=== PATIENT | female | born 1950 | race Hispanic/Latino ===

== ENCOUNTER → 2018-01-31 | Outpatient (CLI) | payer MEDICARE ==
[2018-01-31] MEDS: REGADENOSON 0.4 MG/5 ML PF SYG IVP SCH (10:53)
== END | disposition home or self-care (01) ==
LOC: SHCH 08:09
PROVIDERS: ATTEND Internal Medicine Cardiovascular Disease
DX: R94.31 Abnormal electrocardiogram [ECG] [EKG] (principal); I12.9 Hypertensive chronic kidney disease with stage 1 through stage 4 chronic kidney disease, or unspecified chronic kidney disease; E11.22 Type 2 diabetes mellitus with diabetic chronic kidney disease; N18.9 Chronic kidney disease, unspecified; E78.5 Hyperlipidemia, unspecified
CPT/HCPCS: 78452; 93017; 96374; A9500 ×2; J2785

== ENCOUNTER 2018-02-11 10:30 | Observation (INO) | payer MEDICARE ==
[2018-02-08 10:10] VITALS: BP 99/56
[2018-02-08 10:36] LABS: BASOPHILS % (AUTO) 0.5 % (0.0-5.0); EOSINOPHILS % (AUTO) 3.6 % (0.0-8.0); HEMATOCRIT 42.2 % (36-48); MEAN CORPUSCULAR HEMOGLOBIN 29.3 pg (27.0-33.0); MEAN CORPUSCULAR HGB CONC 33.2 g/dL (32.0-36.0); MEAN CORPUSCULAR VOLUME 88.4 fL (79-99); MONOCYTES % (AUTO) 7.3 % (3.0-13.0); NEUTROPHILS % (AUTO) 62.6 % (40.0-77.0); PLATELET COUNT (AUTO) 165 K/uL (130-400); RED BLOOD CELL COUNT(AUTO) 4.77 MIL/uL (4.00-5.50); RED CELL DISTRIBUTION WIDTH 14.2 % (11.0-15.5)
[2018-02-08 10:44] LABS: APPEARANCE,URINE Clear (CLEAR); BILIRUBIN,URINE Negative (NEGATIVE); COLOR,URINE Dark Yellow (YELLOW); GLUCOSE, URINE (UA) Negative (NEGATIVE); KETONES,URINE Negative (NEGATIVE); LEUKOCYTE ESTERASE ,URINE Small (NEGATIVE); NITRATE,URINE Negative (NEGATIVE); OCCULT BLOOD,URINE Negative (NEGATIVE); PH,URINE 6.5 (5.0-8.0); PROTEIN,URINE Negative (NEGATIVE)
[2018-02-08 10:45] LABS: POTASSIUM 3.7 mmol/L (3.5-5.1)
[2018-02-08 10:50] LABS: INR 0.96 (0.85-1.15); PARTIAL THROMBOPLASTIN TIME 28.7 SEC (26.3-35.5); PROTHROMBIN TIME 10.1 SEC (9.6-11.6)
[2018-02-08 10:55] LABS: BACTERIA,URINE Rare /HPF (None Seen); RBC,URINE None Seen /HPF (0-1); SQUAMOUS EPITHELIAL CELL,UR Rare /HPF (0-2); WBC,URINE 0-1 /HPF (0-1)
[2018-02-11] VITALS (9 sets, daily range): BP systolic 103–136; BP diastolic 52–82
[~2018-02-11] VITALS: Ht 154.9 cm; Wt 75.0 kg
[2018-02-11] MEDS ORDERED: SODIUM CHLORIDE 0.9% 1000ML 1,000 ML IV ONE (12:39)
[2018-02-11] MEDS ORDERED: CALC-190 PO (13:28)
[2018-02-11] MEDS ORDERED: MYCO500T PO (13:28)
[2018-02-11] MEDS ORDERED: NPH,100V11 SQ (13:28)
[2018-02-11] MEDS ORDERED: MULT-1296 PO (13:28)
[2018-02-11] MEDS ORDERED: PRAV20TA4 PO (13:28)
[2018-02-11] MEDS ORDERED: LEVO5TAB13 PO (13:28)
[2018-02-11] MEDS ORDERED: TRAM50TA4 PO (13:28)
[2018-02-11] MEDS ORDERED: AMLO10TA6 PO (13:28)
[2018-02-11] MEDS ORDERED: LATA7.5D OP (13:28)
[2018-02-11] MEDS ORDERED: OMEP40CA37 PO (13:28)
[2018-02-11] MEDS ORDERED: TACR5CAP PO (13:28)
[2018-02-11] MEDS ORDERED: CLON0.1T PO (13:28)
[2018-02-11] MEDS ORDERED: HEPARIN SODIUM 1000UNIT/ML 10ML VIAL ONE (19:40)
[2018-02-11] MEDS ORDERED: IOHEXOL 350 MG/ML 100ML INFUS..BTL IV ONE (19:40)
[2018-02-11] MEDS ORDERED: IOHEXOL-350 50ML VIAL IV ONE (19:40)
[2018-02-11] MEDS ORDERED: NITROGLYCERIN 5 MG/ML 10 ML VIAL IV ONE (19:40)
[2018-02-11] MEDS ORDERED: LIDOCAINE HCL 2% 20ML ONE (19:41)
[2018-02-11] MEDS ORDERED: MEPERIDINE-PF 25 MG/ML SYG ONE (19:56)
[2018-02-11] MEDS ORDERED: SODIUM BICARB 50MEQ 50ML VIAL ONE (19:57)
[2018-02-11] MEDS ORDERED: MIDAZOLAM HCL 1 MG/ML 2ML VIAL ONE (19:57)
[2018-02-11] MEDS ORDERED: GLUCAGON 1MG KIT 1 MG ML IM PRN (20:45)
[2018-02-11] MEDS ORDERED: TRAMADOL HCL 50 MG TABLET PO PRN (20:45)
[2018-02-11] MEDS ORDERED: DEXTROSE 50%-WATER 50 ML DISP.SYRIN IV PRN (20:45)
[2018-02-11] MEDS ORDERED: AMLODIPINE BESYLATE 5 MG TAB PO SCH (21:00)
[2018-02-11] MEDS ORDERED: CLONIDINE HCL 0.1 MG TABLET PO SCH (21:00)
[2018-02-11] MEDS: TACROLIMUS 1 MG CAPSULE PO SCH (21:00)
[2018-02-11] MEDS ORDERED: ATORVASTATIN CALCIUM 10 MG TABLET PO SCH (21:00)
[2018-02-11] MEDS: LATANOPROST 2.5 ML DROPS OP SCH (21:53)
[2018-02-11] MEDS: MYCOPHENOLATE MOFETIL 250 MG CAPSULE PO SCH (21:53)
[2018-02-11] MEDS: CALCIUM 600 + VITAMIN D 400 TABLET PO SCH (22:01)
[2018-02-11] MEDS: INSULIN NPH 100 UNIT/ML 3ML SQ SCH (22:07)
[2018-02-12 03:55] LABS: MEAN CORPUSCULAR HEMOGLOBIN 29.5 pg (27.0-33.0); MEAN CORPUSCULAR HGB CONC 33.9 g/dL (32.0-36.0); MEAN CORPUSCULAR VOLUME 86.9 fL (79-99); PLATELET COUNT (AUTO) 153 K/uL (130-400); RED BLOOD CELL COUNT(AUTO) 4.25 MIL/uL (4.00-5.50); RED CELL DISTRIBUTION WIDTH 13.9 % (11.0-15.5); WHITE BLOOD COUNT (AUTO) 4.6 K/uL (4.8-10.8)
[2018-02-12 04:04] VITALS: BP 108/59
[2018-02-12 04:09] LABS: CREATININE 0.8 mg/dL (0.5-1.5)
[2018-02-12 04:11] LABS: POTASSIUM 2.9 mmol/L (3.5-5.1)
[2018-02-12] MEDS ORDERED: POTASSIUM CHLORIDE 10% ELIXIR 20 MEQ/15 ML UDCUP ONE (04:25)
[2018-02-12] MEDS ORDERED: POTASSIUM CHLORIDE 10% ELIXIR 20 MEQ/15 ML UDCUP PO PRN (05:30)
[2018-02-12] MEDS ORDERED: POTASSIUM CHLORIDE 20MEQ/100ML 100 ML IV PRN (05:30)
[2018-02-12] MEDS ORDERED: LIDOCAINE HCL-MPF 1% 2ML VIAL IVP PRN (05:30)
[2018-02-12] MEDS ORDERED: POTASSIUM CHLORIDE 20 MEQ ERTAB PO PRN (05:30)
[2018-02-12] MEDS ORDERED: SODIUM CHLORIDE 0.9% 1000ML 1,000 ML IV SCH (07:00)
[2018-02-12 07:45] VITALS: BP 110/63
[2018-02-12] MEDS: CALCIUM 600 + VITAMIN D 400 TABLET PO SCH (08:49)
[2018-02-12] MEDS: INSULIN NPH 100 UNIT/ML 3ML SQ SCH (08:50)
[2018-02-12] MEDS: TACROLIMUS 1 MG CAPSULE PO SCH (08:50)
[2018-02-12] MEDS ORDERED: PANTOPRAZOLE SODIUM 40 MG TABLET.DR PO SCH (09:00)
[2018-02-12] MEDS ORDERED: MULTIVITAMIN TABLET PO SCH (09:00)
[2018-02-12] MEDS ORDERED: CETIRIZINE HCL 5 MG TABLET PO SCH (09:00)
[2018-02-12] MEDS: LATANOPROST 2.5 ML DROPS OP SCH (09:02)
[2018-02-12] MEDS: MYCOPHENOLATE MOFETIL 250 MG CAPSULE PO SCH (09:08)
[2018-02-12 12:15] VITALS: BP 133/71
== END 2018-02-12 12:29 | disposition home or self-care (01) ==
LOC: DAH 10:30 → DAHIP 10:31 → 2DH 21:18
PROVIDERS: ADMIT Internal Medicine Cardiovascular Disease; ATTEND Internal Medicine Cardiovascular Disease
DX: I25.10 Atherosclerotic heart disease of native coronary artery without angina pectoris (principal); E78.5 Hyperlipidemia, unspecified; E11.9 Type 2 diabetes mellitus without complications; Q61.3 Polycystic kidney, unspecified; Z82.49 Family history of ischemic heart disease and other diseases of the circulatory system; Z79.899 Other long term (current) drug therapy; Z79.01 Long term (current) use of anticoagulants
CPT/HCPCS: 36415 ×2; 71045; 80048 ×2; 81001; 82948 ×5; 85025; 85027; 85610; 85730; 93005; 93458; 96372 ×2; C1760; C1894; G0378 ×26; J1644; J1815 ×2; J2175; J2250; J3490 ×3; J7030; J7507 ×2; Q9965; Q9967 ×2; 99156; 99157; J7517

== ENCOUNTER 2021-01-28 06:15 | Day surgery (SDC) | payer OTHER, MEDICARE ==
[2021-01-26 10:54] LABS: BASOPHILS % (AUTO) 0.4 % (0.0-5.0); HEMATOCRIT 43.3 % (36-48); LYMPHOCYTES % (AUTO) 22.1 % (21.0-51.0); MEAN CORPUSCULAR HEMOGLOBIN 29.4 pg (27.0-33.0); MEAN CORPUSCULAR HGB CONC 32.1 g/dL (32.0-36.0); MEAN CORPUSCULAR VOLUME 91.5 fL (79-99); MONOCYTES % (AUTO) 6.8 % (3.0-13.0); NEUTROPHILS % (AUTO) 66.3 % (40.0-77.0); PLATELET COUNT (AUTO) 156 K/uL (130-400); RED BLOOD CELL COUNT(AUTO) 4.73 MIL/uL (4.00-5.50); RED CELL DISTRIBUTION WIDTH 12.9 % (11.0-15.5)
[2021-01-26 11:01] LABS: CREATININE 0.9 mg/dL (0.5-1.5); POTASSIUM 3.7 mmol/L (3.5-5.1)
[2021-01-26 11:02] LABS: APPEARANCE,URINE Clear (CLEAR); BILIRUBIN,URINE Negative (NEGATIVE); COLOR,URINE Dark Yellow (YELLOW); GLUCOSE, URINE (UA) Negative (NEGATIVE); KETONES,URINE Trace mg/dL (NEGATIVE); LEUKOCYTE ESTERASE ,URINE Small (NEGATIVE); NITRATE,URINE Negative (NEGATIVE); OCCULT BLOOD,URINE Moderate (NEGATIVE); PROTEIN,URINE Trace mg/dL (NEGATIVE)
[2021-01-26 11:19] LABS: BACTERIA,URINE Rare /HPF (None Seen); SQUAMOUS EPITHELIAL CELL,UR Rare /HPF (0-2)
[2021-01-26 12:39] LABS: INR 1.02 (0.85-1.15); PROTHROMBIN TIME 11.1 SEC (9.6-11.6)
[2021-01-26 12:40] LABS: PARTIAL THROMBOPLASTIN TIME 27.3 SEC (26.3-35.5)
[~2021-01-28] VITALS: Ht 154.9 cm; Wt 82.4 kg
[2021-01-28] VITALS (7 sets, daily range): BP systolic 114–134; BP diastolic 58–70
[~2021-01-28 06:15] MED LIST: AMLO-257 PO; AMLO-258 PO; ASPI-1443 PO; BRIM5DRO OP; CLON0.1T PO; FLUT1BLS IH; INSU100I15 SQ; MYCO500T PO; PRAV20TA4 PO; TACR0.5C7 PO; TACR1CAP10 PO
[2021-01-28] MEDS ORDERED: 0.9%NACL 1000ML 1,000 ML IV SCH (08:00)
[2021-01-28] MEDS ORDERED: MIDAZOLAM HCL 1 MG/ML 2ML VIAL ONE (10:09)
[2021-01-28] MEDS ORDERED: BUPIVACAINE/PF 0.25% 30ML VIAL IJ ONE (10:09)
[2021-01-28] MEDS ORDERED: MEPERIDINE-PF 25 MG/ML SYG ONE (10:09)
[2021-01-28] MEDS ORDERED: LIDOCAINE HCL 1% MDV 50ML VIAL ONE (10:10)
[2021-01-28] MEDS ORDERED: CEFAZOLIN SODIUM 1 GM VIAL ONE (10:39)
[2021-01-28] MEDS ORDERED: ACETAMINOPHEN WITH CODEINE 1 TAB TAB PO PRN ×2 (11:00)
== END 2021-01-28 13:10 | disposition home or self-care (01) ==
LOC: DAH 06:15
PROVIDERS: ATTEND Internal Medicine Cardiovascular Disease
DX: I63.9 Cerebral infarction, unspecified (principal); I47.1 Supraventricular tachycardia; I49.1 Atrial premature depolarization; I10 Essential (primary) hypertension; Z98.890 Other specified postprocedural states; Z98.51 Tubal ligation status; Z79.899 Other long term (current) drug therapy; Z79.01 Long term (current) use of anticoagulants
CPT/HCPCS: 33285; 36415; 71045; 80048; 81001; 82948 ×2; 85025; 85610; 85730; 93005; A4215 ×2; A4216; A4221; A4222; A4223 ×3; A4606; A4663; A6260; C1764; J0690; J2175; J2250; J3490 ×2; 99156; 99157

== ENCOUNTER 2021-04-06 12:19 | Observation (INO) | payer OTHER, MEDICARE ==
[~2021-04-06] VITALS: Ht 154.9 cm; Wt 82.0 kg
[~2021-04-06 12:19] MED LIST changes: -AMLO-258 PO
[2021-04-06] MEDS ORDERED: ASPIRIN 325MG TAB PO SCH (12:30)
[2021-04-06 13:00] LABS: BASOPHILS % (AUTO) 0.6 % (0.0-5.0); EOSINOPHILS % (AUTO) 3.1 % (0.0-8.0); HEMATOCRIT 39.6 % (36-48); LYMPHOCYTES % (AUTO) 24.3 % (21.0-51.0); MEAN CORPUSCULAR HGB CONC 32.1 g/dL (32.0-36.0); MEAN CORPUSCULAR VOLUME 90.4 fL (79-99); MONOCYTES % (AUTO) 8.5 % (3.0-13.0); NEUTROPHILS % (AUTO) 63.3 % (40.0-77.0); PLATELET COUNT (AUTO) 152 K/uL (130-400); RED BLOOD CELL COUNT(AUTO) 4.38 MIL/uL (4.00-5.50); RED CELL DISTRIBUTION WIDTH 13.6 % (11.0-15.5); WHITE BLOOD COUNT (AUTO) 5.2 K/uL (4.8-10.8)
[2021-04-06 13:08] LABS: CREATININE 1.1 mg/dL (0.5-1.5); POTASSIUM 3.5 mmol/L (3.5-5.1)
[2021-04-06 13:18] LABS: ALBUMIN 3.3 g/dL (3.5-5.0); BILIRUBIN,TOTAL 0.8 mg/dL (0.2-1.0); MAGNESIUM 1.5 mg/dL (1.80-2.40); TOTAL PROTEIN, SERUM 6.4 g/dL (6.0-8.3)
[2021-04-06 13:27] LABS: APPEARANCE,URINE Clear (CLEAR); BILIRUBIN,URINE Negative (NEGATIVE); COLOR,URINE Yellow (YELLOW); GLUCOSE, URINE (UA) Negative (NEGATIVE); KETONES,URINE Negative (NEGATIVE); LEUKOCYTE ESTERASE ,URINE Small (NEGATIVE); NITRATE,URINE Negative (NEGATIVE); OCCULT BLOOD,URINE Negative (NEGATIVE); PH,URINE 5.5 (5.0-8.0); PROTEIN,URINE Negative (NEGATIVE)
[2021-04-06 13:36] LABS: BACTERIA,URINE Few /HPF (None Seen); RBC,URINE 0-1 /HPF (0-1)
[2021-04-06] MEDS ORDERED: ACETAMINOPHEN 325 MG TAB PO PRN (17:00)
[2021-04-06] MEDS: NITROGLYCERIN 1GM OINT 1 INCH/1GM TD SCH (17:00)
[2021-04-06] MEDS ORDERED: ONDANSETRON 4MG INJ IV PRN (17:00)
[2021-04-06 17:46] LABS: THYROID STIMULATING HORMONE 0.72 uIU/mL (0.36-3.74)
[2021-04-06] MEDS ORDERED: MAGNESIUM 2GM PREMIX 50ML 50 ML IV ONE ×2 (20:00→21:31)
[2021-04-06] MEDS ORDERED: FAMOTIDINE 20MG VIAL IV SCH ×2 (21:00)
[2021-04-06] MEDS: METOPROLOL TARTRATE 25 MG TAB PO SCH (21:00)
[2021-04-06] MEDS: ATORVASTATIN 40 MG TABLET PO SCH (21:41)
[2021-04-07] VITALS (7 sets, daily range): BP systolic 92–150; BP diastolic 46–97
[2021-04-07] MEDS: NITROGLYCERIN 1GM OINT 1 INCH/1GM TD SCH ×3 (00:57→16:45)
[2021-04-07] MEDS: MORPHINE 2 MG SYG IV PRN ×3 (01:18→14:13)
[2021-04-07 04:06] LABS: HEMOGLOBIN A1C 6.6 % (4.0-6.0)
[2021-04-07 04:13] LABS: CHOLESTEROL 160 mg/dL (<200); HDL CHOLESTEROL 40 mg/dL (35-85); TRIGLYCERIDES 120 mg/dL (30-200)
[2021-04-07 04:28] LABS: LDL DIRECT 103 mg/dL (0-99)
[2021-04-07] MEDS ORDERED: DIATR MEGLU/DIATRIZOATE SODIUM 30 ML BOTTLE ONE (07:59)
[2021-04-07 08:19] LABS: CREATININE 1.3 mg/dL (0.5-1.5); POTASSIUM 3.5 mmol/L (3.5-5.1)
[2021-04-07] MEDS: METOPROLOL TARTRATE 25 MG TAB PO SCH ×2 (09:00→20:58)
[2021-04-07] MEDS: FAMOTIDINE 20MG TAB PO SCH ×2 (09:02→20:45)
[2021-04-07] MEDS: TACROLIMUS 0.5 MG CAPSULE PO SCH (09:02)
[2021-04-07] MEDS: MYCOPHENOLATE MOFETIL 250 MG CAPSULE PO SCH ×2 (09:02→20:46)
[2021-04-07] MEDS: ENOXAPARIN SODIUM 40 MG/0.4 ML SYRINGE SQ SCH (09:03)
[2021-04-07] MEDS: FLUTICASONE/VILANTEROL 1 EACH BLST.W.DEV IH SCH (09:11)
[2021-04-07] MEDS: TIMOLOL OP SCH ×2 (09:12→21:00)
[2021-04-07] MEDS: BRIMONIDINE TARTRATE OP SCH ×2 (09:12→21:00)
[2021-04-07] MEDS: ATORVASTATIN 40 MG TABLET PO SCH (20:45)
[2021-04-07] MEDS: CLONIDINE HCL 0.1 MG TABLET PO SCH (20:48)
[2021-04-07] MEDS: INSULIN LISPRO 100 UNIT/ML 3ML SQ SCH (20:49)
[2021-04-07] MEDS: TACROLIMUS 1 MG CAPSULE PO SCH (20:50)
[2021-04-07] MEDS: AMLODIPINE 5 MG TAB PO SCH (20:58)
[2021-04-07] MEDS ORDERED: NON-FORMULARY MEDICATION 1 EACH (Pravastatin Sodium 20 MG) PO SCH (21:00)
[2021-04-08] MEDS: NITROGLYCERIN 1GM OINT 1 INCH/1GM TD SCH ×3 (01:00→20:10)
[2021-04-08 04:00] VITALS: BP 94/44
[2021-04-08 05:04] LABS: BASOPHILS % (AUTO) 0.5 % (0.0-5.0); EOSINOPHILS % (AUTO) 4.9 % (0.0-8.0); HEMATOCRIT 36.8 % (36-48); LYMPHOCYTES % (AUTO) 25.3 % (21.0-51.0); MEAN CORPUSCULAR HEMOGLOBIN 28.4 pg (27.0-33.0); MEAN CORPUSCULAR VOLUME 91.8 fL (79-99); MONOCYTES % (AUTO) 9.3 % (3.0-13.0); NEUTROPHILS % (AUTO) 59.7 % (40.0-77.0); PLATELET COUNT (AUTO) 119 K/uL (130-400); RED BLOOD CELL COUNT(AUTO) 4.01 MIL/uL (4.00-5.50); RED CELL DISTRIBUTION WIDTH 13.3 % (11.0-15.5); WHITE BLOOD COUNT (AUTO) 3.9 K/uL (4.8-10.8)
[2021-04-08 05:19] LABS: ALBUMIN 2.5 g/dL (3.5-5.0); BILIRUBIN,TOTAL 0.6 mg/dL (0.2-1.0); CREATININE 0.8 mg/dL (0.5-1.5); POTASSIUM 3.7 mmol/L (3.5-5.1); TOTAL PROTEIN, SERUM 5.2 g/dL (6.0-8.3)
[2021-04-08 08:00] VITALS: BP 130/70
[2021-04-08] MEDS: TACROLIMUS 0.5 MG CAPSULE PO SCH (08:11)
[2021-04-08] MEDS: MYCOPHENOLATE MOFETIL 250 MG CAPSULE PO SCH ×2 (08:12→22:15)
[2021-04-08] MEDS: FAMOTIDINE 20MG TAB PO SCH ×2 (08:12→22:15)
[2021-04-08] MEDS: ENOXAPARIN SODIUM 40 MG/0.4 ML SYRINGE SQ SCH (08:13)
[2021-04-08] MEDS: INSULIN LISPRO 100 UNIT/ML 3ML SQ SCH ×2 (08:28→22:24)
[2021-04-08] MEDS: METOPROLOL TARTRATE 25 MG TAB PO SCH ×2 (08:28→20:48)
[2021-04-08] MEDS: TIMOLOL OP SCH ×2 (09:00→21:00)
[2021-04-08] MEDS: BRIMONIDINE TARTRATE OP SCH ×2 (09:00→21:00)
[2021-04-08] MEDS: FLUTICASONE/VILANTEROL 1 EACH BLST.W.DEV IH SCH (09:00)
[2021-04-08 12:41] VITALS: BP 106/51
[2021-04-08] MEDS: TRAMADOL HCL 50 MG TABLET PO SCH ×2 (13:30→21:06)
[2021-04-08] MEDS: ACETAMINOPHEN 325 MG TAB PO PRN ×2 (13:40→22:16)
[2021-04-08 16:45] VITALS: BP 132/65
[2021-04-08 20:00] VITALS: BP 115/58
[2021-04-08] MEDS: AMLODIPINE 5 MG TAB PO SCH (20:48)
[2021-04-08] MEDS: ATORVASTATIN 40 MG TABLET PO SCH (21:00)
[2021-04-08] MEDS: CLONIDINE HCL 0.1 MG TABLET PO SCH (21:00)
[2021-04-08] MEDS: TACROLIMUS 1 MG CAPSULE PO SCH (22:14)
[2021-04-09] VITALS: BP 111/48
[2021-04-09] MEDS: NITROGLYCERIN 1GM OINT 1 INCH/1GM TD SCH ×3 (01:00→16:48)
[2021-04-09 04:00] VITALS: BP 103/56
[2021-04-09] MEDS: TRAMADOL HCL 50 MG TABLET PO SCH ×2 (04:55→13:33)
[2021-04-09] MEDS: ACETAMINOPHEN 325 MG TAB PO PRN (04:57)
[2021-04-09 08:40] VITALS: BP 128/80
[2021-04-09] MEDS: TACROLIMUS 0.5 MG CAPSULE PO SCH (08:56)
[2021-04-09] MEDS: FAMOTIDINE 20MG TAB PO SCH (08:56)
[2021-04-09] MEDS: MYCOPHENOLATE MOFETIL 250 MG CAPSULE PO SCH (08:56)
[2021-04-09] MEDS: METOPROLOL TARTRATE 25 MG TAB PO SCH (08:56)
[2021-04-09] MEDS: ENOXAPARIN SODIUM 40 MG/0.4 ML SYRINGE SQ SCH (08:57)
[2021-04-09] MEDS: BRIMONIDINE TARTRATE OP SCH (09:00)
[2021-04-09] MEDS: FLUTICASONE/VILANTEROL 1 EACH BLST.W.DEV IH SCH (09:00)
[2021-04-09] MEDS: TIMOLOL OP SCH (09:00)
[2021-04-09] MEDS: INSULIN LISPRO 100 UNIT/ML 3ML SQ SCH (09:03)
[2021-04-09 10:58] VITALS: BP 113/68
[2021-04-09 16:54] VITALS: BP 146/81
[2021-04-09] MEDS ORDERED: NAPR-1196 PO (19:47)
== END 2021-04-09 18:10 | disposition home or self-care (01) ==
LOC: EDH 12:19 → EDHIP 16:57 → 4BH 22:39
PROVIDERS: ADMIT Internal Medicine; ATTEND Internal Medicine
DX: R07.89 Other chest pain (principal); I89.0 Lymphedema, not elsewhere classified; E11.9 Type 2 diabetes mellitus without complications; I10 Essential (primary) hypertension; E78.5 Hyperlipidemia, unspecified; I25.10 Atherosclerotic heart disease of native coronary artery without angina pectoris; J45.909 Unspecified asthma, uncomplicated; E78.00 Pure hypercholesterolemia, unspecified; E66.9 Obesity, unspecified; Z95.5 Presence of coronary angioplasty implant and graft; Z94.0 Kidney transplant status; Z68.33 Body mass index [BMI] 33.0-33.9, adult; Z79.82 Long term (current) use of aspirin; Z79.899 Other long term (current) drug therapy
CPT/HCPCS: 36415 ×3; 71045; 78582; 80048; 80053 ×2; 80061; 81001; 82550 ×4; 82948 ×12; 83036; 83735 ×2; 83874 ×3; 83880; 84145; 84443; 84484 ×4; 85025 ×2; 85378; 93005 ×2; 93970; 96365; 96372 ×3; 96375 ×2; 96376; 99285; A9540; A9558; G0378 ×71; J1650 ×3; J3475; J3490; J7507 ×5; J7517 ×6; Q9963

== ENCOUNTER 2023-05-10 05:52 | Day surgery (SDC) | payer MEDICARE ==
[2023-05-08 10:03] VITALS: BP 162/89; PULSE 64; RESP 18
[2023-05-08 10:26] LABS: BASOPHILS # (AUTO) 0.01 K/uL (0.00-0.20); BASOPHILS % (AUTO) 0.2 % (0.0-5.0); EOSINOPHILS % (AUTO) 4.8 % (0.0-8.0); HEMATOCRIT 41.1 % (36-48); IMMATURE GRANULOCYTE ABSOLUTE 0.01 K/uL (0-1); LYMPHOCYTES # (AUTO) 1.2 K/uL (1.0-4.8); LYMPHOCYTES % (AUTO) 27.7 % (21.0-51.0); MEAN CORPUSCULAR HEMOGLOBIN 30.4 pg (27.0-33.0); MEAN CORPUSCULAR HGB CONC 32.1 g/dL (32.0-36.0); MEAN CORPUSCULAR VOLUME 94.7 fL (79-99); MONOCYTES # (AUTO) 0.3 K/uL (0.1-1.0); NEUTROPHILS # (AUTO) 2.5 K/uL (1.8-7.7); NEUTROPHILS % (AUTO) 59.1 % (40.0-77.0); PLATELET COUNT (AUTO) 131 K/uL (130-400); RED BLOOD CELL COUNT(AUTO) 4.34 MIL/uL (4.00-5.50); RED CELL DISTRIBUTION WIDTH 13.8 % (11.0-15.5); WHITE BLOOD COUNT (AUTO) 4.2 K/uL (4.8-10.8)
[2023-05-08 10:36] LABS: CREATININE 0.9 mg/dL (0.5-1.5); POTASSIUM 3.6 mmol/L (3.5-5.1)
[2023-05-08 10:38] LABS: INR 0.98 (0.85-1.15); PROTHROMBIN TIME 11.4 SEC (9.6-11.6)
[2023-05-08 10:39] LABS: PARTIAL THROMBOPLASTIN TIME 30.1 SEC (26.3-35.5)
[~2023-05-10] VITALS: Ht 157.5 cm; Wt 66.5 kg
[2023-05-10] VITALS (9 sets, daily range): BP systolic 142–170; BP diastolic 75–109; PULSE 55–67; RESP 11–18
[~2023-05-10 05:52] MED LIST changes: +ALBU6.7H14 IH; -AMLO-257 PO; +APIX5TAB PO; -ASPI-1443 PO; -BRIM5DRO OP; +BRIM5DRO OU; -CLON0.1T PO; +DILT60CA PO; +FLUT16H NASAL; -INSU100I15 SQ; +IOHEXOL 350 MG/ML 100ML INFUS..BTL IV ONE; +LORA10TA7 PO; +MV-M1TAB20 PO; -PRAV20TA4 PO; +SEMA0.258 SQ; -TACR1CAP10 PO
[2023-05-10] MEDS ORDERED: 0.9%NACL 1000ML 1,000 ML IV ONE (06:17)
[2023-05-10] MEDS ORDERED: NITROGLYCERIN 50MG VIAL ONE (07:10)
[2023-05-10] MEDS ORDERED: IODIXANOL 320 MG/ML 100 ML VIAL ONE (07:11)
[2023-05-10] MEDS ORDERED: HEPARIN 10,000 UNIT/10ML (1,000 UNIT/ML) VIAL ONE (07:11)
[2023-05-10] MEDS ORDERED: LIDOCAINE HCL 400MG/20ML VIAL ONE (07:11)
[2023-05-10] MEDS ORDERED: FENTANYL CITRATE PF 50 MCG/1 ML 2ML VIAL ONE (07:27)
[2023-05-10] MEDS ORDERED: MIDAZOLAM HCL 1 MG/ML 2ML VIAL ONE (07:27)
[2023-05-10] MEDS ORDERED: ASPIRIN 325MG EC TAB PO ONE (08:23)
[2023-05-10] MEDS ORDERED: CLOPIDOGREL 300MG TAB ONE (08:24)
[2023-05-10] MEDS ORDERED: GLUCAGON 1MG KIT 1 MG ML IM PRN (08:30)
[2023-05-10] MEDS ORDERED: ACETAMINOPHEN WITH CODEINE 1 TAB TAB PO PRN (08:30)
[2023-05-10] MEDS ORDERED: DEXTROSE 50%-WATER 50 ML DISP.SYRIN IV PRN (08:30)
[2023-05-10] MEDS ORDERED: 0.9%NACL 1000ML 1,000 ML IV SCH (08:30)
[2023-05-10] MEDS ORDERED: CLOPIDOGREL 75MG TAB PO SCH (09:00)
[2023-05-10] MEDS ORDERED: ASPIRIN 81MG CHEW TAB PO SCH (09:00)
[2023-05-10] MEDS ORDERED: INSULIN HUMULIN R 100 UNIT/ML 3ML SQ SCH (11:30)
== END 2023-05-10 11:48 | disposition home or self-care (01) ==
LOC: DAH 05:52
PROVIDERS: ATTEND Internal Medicine Cardiovascular Disease
DX: I87.1 Compression of vein (principal); I87.2 Venous insufficiency (chronic) (peripheral); I48.0 Paroxysmal atrial fibrillation; I10 Essential (primary) hypertension; E11.39 Type 2 diabetes mellitus with other diabetic ophthalmic complication; H42 Glaucoma in diseases classified elsewhere; Z79.899 Other long term (current) drug therapy; Z79.01 Long term (current) use of anticoagulants; Z82.49 Family history of ischemic heart disease and other diseases of the circulatory system; Z94.0 Kidney transplant status
CPT/HCPCS: 80048; 85025; 85610; 85730; 36415; 37238; 36012; 37252; 37253 ×5; 82948 ×2; 75822; Q9967 ×2; C1876; C1769 ×3; C1894 ×2; C1725; C1753; J3010; J3490 ×2; J7030; J1644 ×2; J2250; A4215; A4222; A4221; A4663; A4216; A4606; A4223 ×3; 96360; 96361; 99156; 99157

== ENCOUNTER 2023-06-20 06:02 | Day surgery (SDC) | payer MEDICARE ==
[2023-06-18 10:05] LABS: BASOPHILS # (AUTO) 0.02 K/uL (0.00-0.20); BASOPHILS % (AUTO) 0.4 % (0.0-5.0); EOSINOPHILS # (AUTO) 0.24 K/uL (0.00-0.70); EOSINOPHILS % (AUTO) 5.2 % (0.0-8.0); HEMATOCRIT 40.1 % (36-48); IMMATURE GRANULOCYTE ABSOLUTE 0.02 K/uL (0-1); LYMPHOCYTES # (AUTO) 1.2 K/uL (1.0-4.8); LYMPHOCYTES % (AUTO) 26.5 % (21.0-51.0); MEAN CORPUSCULAR HEMOGLOBIN 30.1 pg (27.0-33.0); MEAN CORPUSCULAR HGB CONC 31.9 g/dL (32.0-36.0); MEAN CORPUSCULAR VOLUME 94.4 fL (79-99); MONOCYTES # (AUTO) 0.4 K/uL (0.1-1.0); MONOCYTES % (AUTO) 9.2 % (3.0-13.0); NEUTROPHILS # (AUTO) 2.7 K/uL (1.8-7.7); NEUTROPHILS % (AUTO) 58.3 % (40.0-77.0); PLATELET COUNT (AUTO) 131 K/uL (130-400); RED BLOOD CELL COUNT(AUTO) 4.25 MIL/uL (4.00-5.50); RED CELL DISTRIBUTION WIDTH 13.2 % (11.0-15.5); WHITE BLOOD COUNT (AUTO) 4.7 K/uL (4.8-10.8)
[2023-06-18 10:08] LABS: CREATININE 0.9 mg/dL (0.5-1.5)
[2023-06-18 10:10] LABS: INR 0.99 (0.85-1.15); PROTHROMBIN TIME 11.5 SEC (9.6-11.6)
[2023-06-18 10:12] LABS: PARTIAL THROMBOPLASTIN TIME 30.7 SEC (26.3-35.5)
[2023-06-18 10:35] VITALS: BP 146/76; PULSE 75; RESP 18
[~2023-06-20] VITALS: Ht 154.9 cm; Wt 66.2 kg
[~2023-06-20 06:02] MED LIST changes: -ALBU6.7H14 IH; +ASPI-1197 PO; +DILT30 PO; -DILT60CA PO; -FLUT16H NASAL; -IOHEXOL 350 MG/ML 100ML INFUS..BTL IV ONE; +MIDO2.5T PO; -MV-M1TAB20 PO; +PRAV20TA4 PO; +TRAZ-187 PO
[2023-06-20 06:10] VITALS: BP 171/82; PULSE 58; RESP 17
[2023-06-20] MEDS: 0.9%NACL 1000ML 1,000 ML IV ONE (06:49)
[2023-06-20] MEDS ORDERED: LIDOCAINE HCL 400MG/20ML VIAL ONE (07:24)
[2023-06-20] MEDS ORDERED: LIDOCAINE HCL 1% MDV 50ML VIAL ONE (07:24)
[2023-06-20] MEDS ORDERED: BUPIVACAINE/PF 0.25% 30ML VIAL IJ ONE (07:25)
[2023-06-20] MEDS ORDERED: CEFAZOLIN SODIUM 1 GM VIAL ONE (07:25)
== END 2023-06-20 07:40 | disposition home or self-care (01) ==
LOC: DAH 06:02
PROVIDERS: ATTEND Internal Medicine Cardiovascular Disease
DX: I48.19 Other persistent atrial fibrillation (principal); I49.1 Atrial premature depolarization; I10 Essential (primary) hypertension; E78.5 Hyperlipidemia, unspecified; E11.9 Type 2 diabetes mellitus without complications; Z79.899 Other long term (current) drug therapy; Z53.8 Procedure and treatment not carried out for other reasons; Z79.01 Long term (current) use of anticoagulants; Z98.51 Tubal ligation status; Z98.890 Other specified postprocedural states; Z82.49 Family history of ischemic heart disease and other diseases of the circulatory system; Z79.82 Long term (current) use of aspirin
CPT/HCPCS: 93005; 80048; 85025; 85610; 85730; 36415; 82948; J7030; A4215; A4222; A4221; A4663; A4216; A4606; A4223 ×3; J0690; J3490; J0665

== ENCOUNTER 2023-07-19 05:45 | Observation (INO) | payer MEDICARE ==
[2023-07-17 11:28] LABS: BASOPHILS # (AUTO) 0.02 K/uL (0.00-0.20); BASOPHILS % (AUTO) 0.3 % (0.0-5.0); EOSINOPHILS # (AUTO) 0.06 K/uL (0.00-0.70); EOSINOPHILS % (AUTO) 0.8 % (0.0-8.0); HEMATOCRIT 41.5 % (36-48); IMMATURE GRANULOCYTE ABSOLUTE 0.04 K/uL (0-1); LYMPHOCYTES # (AUTO) 0.7 K/uL (1.0-4.8); LYMPHOCYTES % (AUTO) 9.1 % (21.0-51.0); MEAN CORPUSCULAR HEMOGLOBIN 30.3 pg (27.0-33.0); MEAN CORPUSCULAR VOLUME 94.5 fL (79-99); MONOCYTES # (AUTO) 0.5 K/uL (0.1-1.0); MONOCYTES % (AUTO) 6.9 % (3.0-13.0); NEUTROPHILS # (AUTO) 6.1 K/uL (1.8-7.7); NEUTROPHILS % (AUTO) 82.4 % (40.0-77.0); PLATELET COUNT (AUTO) 125 K/uL (130-400); RED BLOOD CELL COUNT(AUTO) 4.39 MIL/uL (4.00-5.50); WHITE BLOOD COUNT (AUTO) 7.4 K/uL (4.8-10.8)
[2023-07-17 11:34] VITALS: BP 161/87; PULSE 62; RESP 18
[2023-07-17 11:35] LABS: CREATININE 0.9 mg/dL (0.5-1.0); POTASSIUM 3.4 mmol/L (3.5-5.1)
[2023-07-17 11:37] LABS: INR 0.98 (0.85-1.15); PROTHROMBIN TIME 11.6 SEC (9.6-11.6)
[2023-07-17 11:38] LABS: PARTIAL THROMBOPLASTIN TIME 30.2 SEC (26.3-35.5)
[2023-07-19] VITALS (15 sets, daily range): BP systolic 114–180; BP diastolic 71–98; PULSE 56–85; RESP 14–17; O2SAT 94–97
[~2023-07-19] VITALS: Ht 157.5 cm; Wt 66.2 kg
[2023-07-19] MEDS ORDERED: CEFAZOLIN SODIUM 1 GM VIAL ONE (07:46)
[2023-07-19] MEDS ORDERED: LIDOCAINE HCL 1% MDV 50ML VIAL ONE (07:46)
[2023-07-19] MEDS ORDERED: MIDAZOLAM HCL 1 MG/ML 2ML VIAL ONE ×4 (07:47→10:52)
[2023-07-19] MEDS ORDERED: MEPERIDINE-PF 25 MG/ML SYG ONE ×4 (07:47→10:52)
[2023-07-19] MEDS ORDERED: IOHEXOL-350 50ML VIAL IV ONE (07:47)
[2023-07-19] MEDS ORDERED: BUPIVACAINE/PF 0.25% 30ML VIAL IJ ONE (07:48)
[2023-07-19] MEDS ORDERED: HEPARIN 1,000 UNIT VIAL ONE (09:11)
[2023-07-19] MEDS ORDERED: LIDOCAINE HCL 400MG/20ML VIAL ONE (09:13)
[2023-07-19] MEDS ORDERED: BACITRACIN 1 EACH PACKET TP ONE (10:25)
[2023-07-19] MEDS ORDERED: ACETAMINOPHEN 500 MG TABLET PO PRN (12:00)
[2023-07-19] MEDS: ACETAMINOPHEN WITH CODEINE 1 TAB TAB PO PRN (16:18)
[2023-07-19] MEDS: HYDRALAZINE 20MG/ML VIAL IV ONE (16:46)
[2023-07-19] MEDS: ONDANSETRON 4MG INJ ONE (17:37)
[2023-07-19] MEDS: ONDANSETRON 4MG INJ IVP STA (18:25)
[2023-07-19 19:08] LABS: CREATININE 0.8 mg/dL (0.5-1.0); POTASSIUM 3.1 mmol/L (3.5-5.1)
[2023-07-19] MEDS: CEFAZOLIN SODIUM 2 GM VIAL ONE (19:26)
[2023-07-19] MEDS: LACTATED RINGERS 1000ML 1,000 ML IV ONE (19:26)
[2023-07-19] MEDS: POTASSIUM CHLORIDE 10MEQ/100ML 100 ML IV ONE (19:26)
[2023-07-19] MEDS: 0.9%NACL 1000ML 1,000 ML IV ONE (19:26)
[2023-07-19] MEDS ORDERED: ONDANSETRON 4MG INJ IVP PRN (19:30)
[2023-07-19] MEDS ORDERED: POTASSIUM CHLORIDE 10% ELIXIR 20 MEQ/15 ML UDCUP PO PRN (19:30)
[2023-07-19] MEDS ORDERED: POTASSIUM CHLORIDE 20MEQ/100ML 100 ML IV PRN (19:30)
[2023-07-19] MEDS: (Brimonidine Tartrate/Timolol (Combigan Eye Drops) 1 DROP) OU SCH (19:59)
[2023-07-19] MEDS: MYCOPHENOLATE MOFETIL 500 MG PO SCH (19:59)
[2023-07-19] MEDS: ATORVASTATIN 10 MG TABLET PO SCH (20:07)
[2023-07-19] MEDS: KCL 20 MEQ ERTAB PO PRN (20:07)
[2023-07-19] MEDS: MIDODRINE HCL 5 MG TABLET PO SCH (20:08)
[2023-07-19] MEDS: TRAZODONE HCL 100 MG TABLET PO SCH (20:08)
[2023-07-19] MEDS: TACROLIMUS 0.5 MG CAPSULE PO SCH (20:08)
[2023-07-20 03:43] VITALS: BP 133/75; PULSE 80; RESP 16
[2023-07-20 04:15] LABS: CREATININE 0.8 mg/dL (0.5-1.0); MAGNESIUM 1.2 mg/dL (1.80-2.40); POTASSIUM 3.5 mmol/L (3.5-5.1)
[2023-07-20 07:49] VITALS: BP 146/95; PULSE 80; RESP 18
[2023-07-20 08:00] VITALS: O2SAT 96
[2023-07-20] MEDS: DILTIAZEM 60MG TAB PO SCH (08:29)
[2023-07-20] MEDS: ASPIRIN 81MG CHEW TAB PO SCH (08:30)
[2023-07-20] MEDS: LORATADINE 10 MG TABLET PO SCH (08:30)
[2023-07-20] MEDS ORDERED: MAGN400T53 PO (11:31)
[2023-07-20] MEDS: MAGNESIUM 2GM PREMIX 50ML 50 ML IV PRN (11:55)
[2023-07-20 12:00] VITALS: BP 129/68; PULSE 82; RESP 18
[2023-07-20 16:15] VITALS: BP 135/86; PULSE 80; RESP 18
== END 2023-07-20 16:41 | disposition home or self-care (01) ==
LOC: DAH 05:45 → DAHIP 05:46 → 2AH 17:15
PROVIDERS: ADMIT Internal Medicine Cardiovascular Disease; ATTEND Internal Medicine Cardiovascular Disease
DX: I48.19 Other persistent atrial fibrillation (principal); I44.2 Atrioventricular block, complete; I49.5 Sick sinus syndrome; I48.0 Paroxysmal atrial fibrillation; E11.9 Type 2 diabetes mellitus without complications; I10 Essential (primary) hypertension; E78.5 Hyperlipidemia, unspecified; I87.1 Compression of vein; Z94.0 Kidney transplant status; Z98.51 Tubal ligation status
CPT/HCPCS: 80048 ×3; 85025; 85610; 85730; 36415 ×3; 93005; 93619; 93650; 33286; 33208; 96375; 84132; 82948 ×5; 96365; 83735 ×2; 71045; A4649 ×3; C1894; C1785; C1898 ×2; C1893; C1732; G0378 ×29; J7120; J0690 ×2; J3490 ×2; J7030; J0665; J0360; J2250 ×4; J2405; J2175 ×4; J1644 ×2; J7507; J3480; A4520; A4215; A4223 ×3; A4335; A4222; A4221; A4663; A4216; A4606; J3475; 99156; 99157; Q9967

== ENCOUNTER 2024-01-21 05:50 | Day surgery (SDC) | payer MEDICARE ==
[2024-01-16 10:53] VITALS: BP 162/98; PULSE 82; RESP 18; TEMP 97.9
[2024-01-16 15:17] LABS: BASOPHILS # (AUTO) 0.01 K/uL (0.00-0.20); BASOPHILS % (AUTO) 0.2 % (0.0-5.0); EOSINOPHILS # (AUTO) 0.18 K/uL (0.00-0.70); HEMATOCRIT 43.6 % (36-48); LYMPHOCYTES # (AUTO) 1.4 K/uL (1.0-4.8); LYMPHOCYTES % (AUTO) 31.6 % (21.0-51.0); MEAN CORPUSCULAR HGB CONC 31.9 g/dL (32.0-36.0); MEAN CORPUSCULAR VOLUME 94.2 fL (79-99); MONOCYTES # (AUTO) 0.3 K/uL (0.1-1.0); MONOCYTES % (AUTO) 7.3 % (3.0-13.0); NEUTROPHILS # (AUTO) 2.6 K/uL (1.8-7.7); NEUTROPHILS % (AUTO) 56.9 % (40.0-77.0); PLATELET COUNT (AUTO) 141 K/uL (130-400); RED BLOOD CELL COUNT(AUTO) 4.63 MIL/uL (4.00-5.50); RED CELL DISTRIBUTION WIDTH 13.4 % (11.0-15.5); WHITE BLOOD COUNT (AUTO) 4.6 K/uL (4.8-10.8)
[2024-01-16 15:26] LABS: CREATININE 0.9 mg/dL (0.5-1.0); POTASSIUM 3.8 mmol/L (3.5-5.1)
[2024-01-16 15:37] LABS: INR 1.06 (0.85-1.15); PARTIAL THROMBOPLASTIN TIME 26.1 SEC (26.3-35.5); PROTHROMBIN TIME 11.2 SEC (9.6-11.6)
--- NOTE | 2024-01-17 06:43 | EKG ---
[facility] Test Date: 2024-01-16 Test Time: 14:58:10 Pat Name: KALA LARRY Department: [facility] Room: Gender: F Spot [employer]er: [id number] : 1950 Requested By: Jovanny MCCLURE Order Number: [id number] Reading MD: Rach Lopez Measurements Intervals [facility] [place] Rate: 100 P: 0 OR: 160 QRS: -59 QRSD: 163 T: 118 QT: 419 QTc: 542 Interpretive Statements Atrial-ventricular dual-paced complexes Compared to ECG 07/17/2023 09:56:01 Sinus rhythm no longer present Atrial premature complex(es) no longer present Early repolarization no longer present Electronically Signed On 01-18-2024 07:23:04 CDT by Rach Lopez Please click the below link to view image of tracing.
[~2024-01-21] VITALS: Ht 154.9 cm; Wt 63.3 kg
[2024-01-21] VITALS (33 sets, daily range): BP systolic 126–184; BP diastolic 75–96; PULSE 83–92; RESP 14–33; TEMP 97.6–98
[~2024-01-21 05:50] MED LIST changes: +ALBU18HF7 IH; +APIX2.5T PO; -APIX5TAB PO; -ASPI-1197 PO; +DOCU-116 PO; +ERGO500093 PO; -LORA10TA7 PO; -MIDO2.5T PO; +MIDO2.5T4 PO; -SEMA0.258 SQ; +SENN-376 PO; +SITA25TA5 PO; -TRAZ-187 PO
[2024-01-21] MEDS: 0.9%NACL 1000ML 1,000 ML IV ONE (07:06)
[2024-01-21] MEDS ORDERED: BUPIvacaine/PF 0.25% 30ML VIAL IJ ONE (07:13)
[2024-01-21] MEDS ORDERED: ceFAZolin SODIUM 1 GM VIAL ONE (07:13)
[2024-01-21] MEDS ORDERED: LIDOCAINE HCL 1% MDV 50ML VIAL ONE (07:13)
[2024-01-21] MEDS ORDERED: IOHEXOL-350 50ML VIAL IV ONE (07:13)
[2024-01-21] MEDS ORDERED: IOHEXOL-350 75 ML VIAL IV ONE (07:15)
[2024-01-21] MEDS ORDERED: MIDAZOLAM HCL 1 MG/ML 2ML VIAL ONE ×4 (07:34→10:04)
[2024-01-21] MEDS ORDERED: MEPERIDINE-PF 25 MG/ML SYG ONE ×4 (07:34→10:04)
[2024-01-21] MEDS ORDERED: THROMBIN-JMI 5000 UNIT/VIAL TP ONE (08:25)
[2024-01-21] MEDS ORDERED: BACITRACIN 1 EACH PACKET TP ONE (10:43)
[2024-01-21] MEDS ORDERED: DEXTROSE 50%-WATER 50 ML DISP.SYRIN IV PRN (11:00)
[2024-01-21] MEDS ORDERED: acetaMINOPHEN WITH coDEINE 1 TAB TAB PO PRN (11:00)
[2024-01-21] MEDS ORDERED: NALoxone HCL 0.4 MG/1 ML ML ONE (11:08)
[2024-01-21] MEDS ORDERED: ondanSETRON 4MG INJ ONE (11:15)
[2024-01-21] MEDS ORDERED: INSULIN humuLIN R 100 UNIT/ML 3ML SQ SCH (11:30)
[2024-01-21] MEDS: fluMAZenil 0.1MG/1ML 5ML VIAL IV ONE (13:18)
[2024-01-21] MEDS ORDERED: fluMAZenil 0.1MG/1ML 5ML VIAL IV PRN (13:30)
[2024-01-21] MEDS ORDERED: METO25TA6 PO (15:14)
[2024-01-21] MEDS ORDERED: DOXY100T2 PO (15:14)
--- NOTE | 2024-01-21 15:23 | HMCIMG ---
CHEST 1VW REASON: s/p icd insertion COMPARISON: 07/20/2023 FINDINGS: Single view of the chest was obtained. Lungs are clear. Heart size is normal. There is no pulmonary vascular congestion. Mediastinum and bony thorax appear unremarkable. There is a bipolar pacemaker in place. There is no pneumothorax. IMPRESSION: 1. Pacemaker and grade, no pneumothorax.
[2024-01-21] MEDS: ceFAZolin SODIUM 1 GM VIAL IVPB ONE (15:29)
[2024-01-21] MEDS: acetaMINOPHEN WITH coDEINE 1 TAB TAB PO PRN (15:39)
== END 2024-01-21 16:15 | disposition home or self-care (01) ==
LOC: DAH 05:50
PROVIDERS: ATTEND Internal Medicine Cardiovascular Disease
DX: I42.0 Dilated cardiomyopathy (principal); I49.5 Sick sinus syndrome; I44.2 Atrioventricular block, complete; I25.5 Ischemic cardiomyopathy; I11.0 Hypertensive heart disease with heart failure; I47.20 Ventricular tachycardia, unspecified; I50.9 Heart failure, unspecified; I44.7 Left bundle-branch block, unspecified; R53.83 Other fatigue; R06.09 Other forms of dyspnea; E78.5 Hyperlipidemia, unspecified; E11.9 Type 2 diabetes mellitus without complications; Z94.0 Kidney transplant status; Z98.51 Tubal ligation status; Z95.811 Presence of heart assist device; Z79.01 Long term (current) use of anticoagulants; Z79.899 Other long term (current) drug therapy
CPT/HCPCS: 80048; 85025; 85610; 85730; 36415; 93005; 33225; 33233; 33235; 33249; 82948 ×2; 71045; A4223 ×3; C1887; C1769 ×4; C1882; C1900; C1895; C1894; J0690 ×2; J3490 ×3; J2310; J7030; J0665; J2250 ×4; J2405; J2175 ×4; Q9967; A4215; A4222; A4221; A4663; A4216; A4606; 33234; 99156; 99157; C1896